=== PATIENT | female | born 1955 | race Caucasian/White ===

== ENCOUNTER → 2016-12-08 | Outpatient (CLI) | payer BC ==
[~2016-12-08] MED LIST: BACTRIM DS TAB1 EACH PO; CELEBREX 200MG200 MG PO; D3-5050000 IU PO; HCTZ 25MG25 MG PO; TRAMADOL 50 MG TAB PO; TRIAMTERENE AND1 CAP PO; ZANTAC300 MG PO
== END ==
LOC: LAB 09:29
DX: Z00.00 Encounter for general adult medical examination without abnormal findings (principal)

== ENCOUNTER → 2017-04-13 | Outpatient (CLI) | payer BC ==
[~2017-04-13] VITALS: Ht 167.6 cm; Wt 89.5 kg
[2017-04-13 17:23] VITALS: BP 138/85
== END ==
LOC: AMSURD 16:42
DX: Z01.812 Encounter for preprocedural laboratory examination (principal); M16.0 Bilateral primary osteoarthritis of hip

== ENCOUNTER → 2017-04-18 | Outpatient (CLI) | payer BC ==
[2017-04-13 17:23] VITALS: BP 138/85
== END ==
LOC: LAB 12:22
DX: Z01.818 Encounter for other preprocedural examination (principal); M16.0 Bilateral primary osteoarthritis of hip; N30.00 Acute cystitis without hematuria

== ENCOUNTER → 2017-08-17 | Outpatient (CLI) | payer BC ==
[~2017-08-17] VITALS: Ht 167.6 cm; Wt 89.5 kg
[~2017-08-17] MED LIST changes: +CLARITIN-D 10 M1 T24 PO; +GINSENG100 M2 PO; +GLUCOSAMIN-CHO1 EACH PO; +IRON90 MG PO; +MAGNESIUM CHELA27 MG PO; +NATURE'S BLE1000 MCG PO; +PHARMASSURE FO0.4 MG PO; +POTASSIUM GLUC550 M1 PO; +VITAMIN B122500 MC1 PO; +VITAMIN C500 MG PO; +VITAMIN C60 MG PO
[2017-08-17 16:23] VITALS: BP 134/87
== END ==
LOC: AMSURD 15:46
DX: Z01.818 Encounter for other preprocedural examination (principal); M16.0 Bilateral primary osteoarthritis of hip

== ENCOUNTER → 2017-08-20 | Outpatient (CLI) | payer BC ==
[2017-08-17 16:23] VITALS: BP 134/87
== END ==
LOC: LAB 09:31
DX: Z01.818 Encounter for other preprocedural examination (principal); M16.0 Bilateral primary osteoarthritis of hip

== ENCOUNTER → 2017-08-24 | Outpatient (CLI) | payer BC ==
[2017-08-17 16:23] VITALS: BP 134/87
== END ==
LOC: LAB 08:26
DX: Z01.818 Encounter for other preprocedural examination (principal); M16.0 Bilateral primary osteoarthritis of hip; N30.00 Acute cystitis without hematuria

== ENCOUNTER → 2018-02-15 | Outpatient (CLI) | payer BC ==
[2017-08-17 16:23] VITALS: BP 134/87
== END ==
LOC: RAD 13:59
DX: R05 Cough (principal)

== ENCOUNTER → 2018-10-02 | Outpatient (CLI) | payer BC ==
[2017-08-17 16:23] VITALS: BP 134/87
== END ==
LOC: MAMMO 15:15
DX: Z12.31 Encounter for screening mammogram for malignant neoplasm of breast (principal); Z12.11 Encounter for screening for malignant neoplasm of colon; Z01.419 Encounter for gynecological examination (general) (routine) without abnormal findings

== ENCOUNTER → 2018-10-14 | Day surgery (SDC) | payer BC ==
[2017-08-17 16:23] VITALS: BP 134/87
== END ==
LOC: MSO 08:35
DX: Z12.11 Encounter for screening for malignant neoplasm of colon (principal); I10 Essential (primary) hypertension; J45.909 Unspecified asthma, uncomplicated; K21.9 Gastro-esophageal reflux disease without esophagitis; Z79.899 Other long term (current) drug therapy
CPT/HCPCS: 00812; J2405; J2704; J3010; J7120

== ENCOUNTER → 2018-10-31 | Outpatient (CLI) | payer BC ==
[2017-08-17 16:23] VITALS: BP 134/87
[2018-10-31 16:11] LABS: EOS # 0.2 (0.04-0.40); EOS % 2.7 % (1.0-5.0); HEMOGLOBIN 14.6 g/dL (12.5-16.0); LYMPH# 2.5 (1.50-4.00); MEAN CELL VOLUME 86 fl (78-100); MEAN CORPUSCULAR HEMOGLOBIN 29 pg (27-31); MEAN CORPUSCULAR HGB CONC 34 g/dL (33-37); MEAN PLATELET VOLUME 9.3 fl (7.4-10.4); MONO # 0.5 (0.20-0.80); NEU # 3.1 (1.40-6.50); PLATELET COUNT 284 K/mm3 (130-400); RED BLOOD COUNT 4.98 M/mm3 (4.10-5.30); RED CELL DISTRIBUTION WIDTH 13.5 % (11.5-14.5); WHITE BLOOD COUNT 6.3 K/mm3 (4.8-10.8)
[2018-10-31 16:36] LABS: ALBUMIN 4.5 g/dL (3.5-5.0); CALCIUM 9.3 mg/dL (8.4-10.2); POTASSIUM 3.7 mmol/L (3.6-5.0); TOTAL BILIRUBIN 0.4 mg/dL (0.2-1.3); TOTAL PROTEIN 7.6 g/dL (6.3-8.2)
[2018-10-31 17:40] LABS: ERYTHROCYTE SEDIMENTATION RATE 4 mm/hr (0-30)
== END ==
LOC: LAB 15:50
PROVIDERS: Internal Medicine
DX: Z12.11 Encounter for screening for malignant neoplasm of colon (principal); Z00.00 Encounter for general adult medical examination without abnormal findings

== ENCOUNTER → 2019-10-22 | Outpatient (CLI) | payer MEDICARE, OTHER ==
[2017-08-17 16:23] VITALS: BP 134/87
== END ==
LOC: MAMMO 15:46
DX: Z12.31 Encounter for screening mammogram for malignant neoplasm of breast (principal)

== ENCOUNTER → 2019-10-31 | Outpatient (CLI) | payer MEDICARE, OTHER ==
[2017-08-17 16:23] VITALS: BP 134/87
[2019-10-31 15:54] LABS: EOS # 0.2 (0.04-0.40); EOS % 2.1 % (1.0-5.0); HEMATOCRIT 45.4 % (37.0-47.0); HEMOGLOBIN 15.3 g/dL (12.5-16.0); LYMPH# 2.6 (1.50-4.00); MEAN CELL VOLUME 86 fl (78-100); MEAN CORPUSCULAR HEMOGLOBIN 29 pg (27-31); MEAN CORPUSCULAR HGB CONC 34 g/dL (33-37); MEAN PLATELET VOLUME 9.3 fl (7.4-10.4); MONO # 0.7 (0.20-0.80); NEU # 3.8 (1.40-6.50); PLATELET COUNT 264 K/mm3 (130-400); RED BLOOD COUNT 5.26 M/mm3 (4.10-5.30); RED CELL DISTRIBUTION WIDTH 13.6 % (11.5-14.5); WHITE BLOOD COUNT 7.3 K/mm3 (4.8-10.8)
[2019-10-31 16:10] LABS: ALBUMIN 4.3 g/dL (3.4-4.8); POTASSIUM 3.6 mmol/L (3.5-5.1)
[2019-10-31 16:11] LABS: CALCIUM 10.1 mg/dL (8.3-10.5)
[2019-10-31 16:12] LABS: TOTAL PROTEIN 7.8 g/dL (6.2-8.1)
[2019-10-31 16:14] LABS: TOTAL BILIRUBIN 0.5 mg/dL (0.2-1.2)
[2019-10-31 16:59] LABS: ERYTHROCYTE SEDIMENTATION RATE 4 mm/hr (0-30)
== END ==
LOC: LAB 14:44
PROVIDERS: Internal Medicine
DX: Z12.11 Encounter for screening for malignant neoplasm of colon (principal); E78.2 Mixed hyperlipidemia; K90.9 Intestinal malabsorption, unspecified; F32.2 Major depressive disorder, single episode, severe without psychotic features

== ENCOUNTER → 2020-06-24 | Outpatient (CLI) | payer MEDICARE, OTHER ==
[2017-08-17 16:23] VITALS: BP 134/87
[2020-06-24 08:37] LABS: EOS # 0.2 (0.04-0.40); EOS % 3.4 % (1.0-5.0); HEMATOCRIT 45.5 % (37.0-47.0); HEMOGLOBIN 15.4 g/dL (12.5-16.0); LYMPH# 2.9 (1.50-4.00); MEAN CELL VOLUME 86 fl (78-100); MEAN CORPUSCULAR HEMOGLOBIN 29 pg (27-31); MEAN CORPUSCULAR HGB CONC 34 g/dL (33-37); MEAN PLATELET VOLUME 9.3 fl (7.4-10.4); MONO # 0.7 (0.20-0.80); NEU # 2.4 (1.40-6.50); PLATELET COUNT 262 K/mm3 (130-400); RED BLOOD COUNT 5.28 M/mm3 (4.10-5.30); RED CELL DISTRIBUTION WIDTH 13.1 % (11.5-14.5); WHITE BLOOD COUNT 6.2 K/mm3 (4.8-10.8)
[2020-06-24 08:47] LABS: ALBUMIN 4.3 g/dL (3.4-4.8); POTASSIUM 3.6 mmol/L (3.5-5.1)
[2020-06-24 08:48] LABS: CALCIUM 9.8 mg/dL (8.3-10.5)
[2020-06-24 08:50] LABS: TOTAL PROTEIN 7.8 g/dL (6.2-8.1)
[2020-06-24 08:51] LABS: TOTAL BILIRUBIN 0.5 mg/dL (0.2-1.2)
[2020-06-24 09:40] LABS: ERYTHROCYTE SEDIMENTATION RATE 0 mm/hr (0-30)
== END ==
LOC: LAB 08:24
PROVIDERS: Internal Medicine
DX: E78.2 Mixed hyperlipidemia (principal); F32.2 Major depressive disorder, single episode, severe without psychotic features; K90.9 Intestinal malabsorption, unspecified

== ENCOUNTER → 2020-10-22 | Outpatient (CLI) | payer MEDICARE, OTHER ==
[2017-08-17 16:23] VITALS: BP 134/87
== END ==
LOC: LAB 10:36
DX: K90.9 Intestinal malabsorption, unspecified (principal)

== ENCOUNTER → 2020-11-30 | Outpatient (CLI) | payer MEDICARE, OTHER ==
[2017-08-17 16:23] VITALS: BP 134/87
== END ==
LOC: CARDLAB 10:08 → CARDREHAB 15:24
DX: G47.19 Other hypersomnia (principal)
CPT/HCPCS: G0399

== ENCOUNTER → 2021-03-01 | Outpatient (CLI) | payer MEDICARE, OTHER ==
[2017-08-17 16:23] VITALS: BP 134/87
[2021-03-01 09:49] LABS: ALBUMIN 4.2 g/dL (3.4-4.8)
[2021-03-01 09:50] LABS: POTASSIUM 3.7 mmol/L (3.5-5.1)
[2021-03-01 09:51] LABS: CALCIUM 9.5 mg/dL (8.3-10.5); PROTHROMBIN TIME 10.1 SECONDS (9.0-12.0)
[2021-03-01 09:52] LABS: TOTAL PROTEIN 7.6 g/dL (6.2-8.1)
[2021-03-01 09:54] LABS: BASO # 0.1 (0.02-0.10); EOS # 0.3 (0.04-0.40); HEMATOCRIT 46.6 % (37.0-47.0); HEMOGLOBIN 15.5 g/dL (12.5-16.0); LYMPH# 2.9 (1.50-4.00); MEAN CELL VOLUME 87 fl (78-100); MEAN CORPUSCULAR HEMOGLOBIN 29 pg (27-31); MEAN CORPUSCULAR HGB CONC 33 g/dL (33-37); MEAN PLATELET VOLUME 9.4 fl (7.4-10.4); MONO # 0.6 (0.20-0.80); NEU # 2.7 (1.40-6.50); PLATELET COUNT 276 K/mm3 (130-400); RED BLOOD COUNT 5.37 M/mm3 (4.10-5.30); RED CELL DISTRIBUTION WIDTH 13.3 % (11.5-14.5); TOTAL BILIRUBIN 0.7 mg/dL (0.2-1.2); WHITE BLOOD COUNT 6.5 K/mm3 (4.8-10.8)
[2021-03-01 09:58] LABS: MAGNESIUM 2.07 mg/dL (1.60-2.60)
[2021-03-01 12:04] LABS: URINE APPEARANCE CLEAR; URINE BILIRUBIN NEGATIVE (NEGATIVE); URINE BLOOD NEGATIVE (NEGATIVE); URINE COLOR YELLOW; URINE GLUCOSE NEGATIVE (NEGATIVE); URINE KETONE NEGATIVE (NEGATIVE); URINE LEUKOCYTE ESTERASE NEGATIVE (NEGATIVE); URINE NITRATE NEGATIVE (NEGATIVE); URINE PROTEIN(semi-quant) NEGATIVE (NEGATIVE); URINE UROBILINOGEN NORMAL (NORMAL)
== END ==
LOC: AMSURD 09:14
PROVIDERS: Internal Medicine
DX: Z01.812 Encounter for preprocedural laboratory examination (principal)

== ENCOUNTER → 2021-03-01 | Outpatient (CLI) | payer MEDICARE, OTHER ==
[2017-08-17 16:23] VITALS: BP 134/87
== END ==
LOC: MAMMO 10:07
DX: Z12.31 Encounter for screening mammogram for malignant neoplasm of breast (principal)

== ENCOUNTER → 2021-08-12 | Outpatient (CLI) | payer MEDICARE, OTHER | LOC: RAD 10:48 | DX: M17.11 Unilateral primary osteoarthritis, right knee (principal) ==

== ENCOUNTER → 2022-02-24 | Outpatient (CLI) | payer MEDICARE, OTHER ==
[2022-02-24 10:34] LABS: ALBUMIN 4.2 g/dL (3.4-4.8); POTASSIUM 3.7 mmol/L (3.5-5.1)
[2022-02-24 10:35] LABS: CALCIUM 10.2 mg/dL (8.3-10.5)
[2022-02-24 10:37] LABS: TOTAL PROTEIN 7.5 g/dL (6.2-8.1)
[2022-02-24 10:38] LABS: TOTAL BILIRUBIN 0.8 mg/dL (0.2-1.2)
[2022-02-24 10:48] LABS: BASO # 0.03 K/mm3 (0.02-0.10); EOS # 0.19 K/mm3 (0.04-0.40); EOS % 1.8 % (1.0-5.0); HEMATOCRIT 46.5 % (37.0-47.0); HEMOGLOBIN 15.9 g/dL (12.5-16.0); LYMPH# 3.06 K/mm3 (1.50-4.00); MEAN CELL VOLUME 87 fl (78-100); MEAN CORPUSCULAR HEMOGLOBIN 30 pg (27-31); MEAN CORPUSCULAR HGB CONC 34 g/dL (33-37); MEAN PLATELET VOLUME 9.8 fl (7.4-10.4); MONO # 0.81 K/mm3 (0.20-0.80); NEU # 6.35 K/mm3 (1.40-6.50); PLATELET COUNT 250 K/mm3 (130-400); RED BLOOD COUNT 5.37 M/mm3 (4.10-5.30); RED CELL DISTRIBUTION WIDTH 12.6 % (11.5-14.5); WHITE BLOOD COUNT 10.5 K/mm3 (4.8-10.8)
[2022-02-24 11:58] LABS: ERYTHROCYTE SEDIMENTATION RATE 2 mm/hr (0-30)
== END ==
LOC: LAB 09:53
PROVIDERS: Internal Medicine
DX: G47.33 Obstructive sleep apnea (adult) (pediatric) (principal); E78.2 Mixed hyperlipidemia; K90.9 Intestinal malabsorption, unspecified; R41.3 Other amnesia; R41.89 Other symptoms and signs involving cognitive functions and awareness

== ENCOUNTER → 2022-03-13 | Outpatient (CLI) | payer MEDICARE, OTHER | LOC: RAD 08:43 | DX: G31.9 Degenerative disease of nervous system, unspecified (principal) | CPT/HCPCS: A9585 ==

== ENCOUNTER → 2023-02-20 | Outpatient (CLI) | payer MEDICARE, OTHER ==
[2023-02-20 11:22] LABS: BASO # 0.05 K/mm3 (0.02-0.10); EOS # 0.16 K/mm3 (0.04-0.40); EOS % 2.3 % (1.0-5.0); HEMATOCRIT 44.7 % (37.0-47.0); LYMPH# 2.84 K/mm3 (1.50-4.00); MEAN CELL VOLUME 88 fl (78-100); MEAN CORPUSCULAR HEMOGLOBIN 30 pg (27-31); MEAN CORPUSCULAR HGB CONC 34 g/dL (33-37); MEAN PLATELET VOLUME 9.1 fl (7.4-10.4); MONO # 0.58 K/mm3 (0.20-0.80); NEU # 3.21 K/mm3 (1.40-6.50); PLATELET COUNT 226 K/mm3 (130-400); RED BLOOD COUNT 5.08 M/mm3 (4.10-5.30); RED CELL DISTRIBUTION WIDTH 12.9 % (11.5-14.5); WHITE BLOOD COUNT 6.9 K/mm3 (4.8-10.8)
[2023-02-20 11:29] LABS: ALBUMIN 4.2 g/dL (3.4-4.8); POTASSIUM 3.9 mmol/L (3.5-5.1)
[2023-02-20 11:30] LABS: CALCIUM 9.8 mg/dL (8.3-10.5)
[2023-02-20 11:32] LABS: TOTAL PROTEIN 7.3 g/dL (6.2-8.1)
[2023-02-20 11:33] LABS: TOTAL BILIRUBIN 0.5 mg/dL (0.2-1.2)
[2023-02-20 12:28] LABS: ERYTHROCYTE SEDIMENTATION RATE 5 mm/hr (0-30)
== END ==
LOC: LAB 11:02
PROVIDERS: Internal Medicine
DX: Z12.11 Encounter for screening for malignant neoplasm of colon (principal); E78.2 Mixed hyperlipidemia; K90.9 Intestinal malabsorption, unspecified; F32.0 Major depressive disorder, single episode, mild

== ENCOUNTER → 2024-03-25 | Outpatient (CLI) | payer MEDICARE, OTHER ==
[2024-03-25 13:35] LABS: BASO # 0.04 K/mm3 (0.02-0.10); EOS # 0.14 K/mm3 (0.04-0.40); EOS % 1.9 % (1.0-5.0); HEMATOCRIT 45.8 % (37.0-47.0); HEMOGLOBIN 15.2 g/dL (12.5-16.0); LYMPH# 3.16 K/mm3 (1.50-4.00); MEAN CELL VOLUME 90 fl (78-100); MEAN CORPUSCULAR HEMOGLOBIN 30 pg (27-31); MEAN CORPUSCULAR HGB CONC 33 g/dL (33-37); MEAN PLATELET VOLUME 9.2 fl (7.4-10.4); MONO # 0.57 K/mm3 (0.20-0.80); NEU # 3.39 K/mm3 (1.40-6.50); PLATELET COUNT 232 K/mm3 (130-400); RED BLOOD COUNT 5.11 M/mm3 (4.10-5.30); WHITE BLOOD COUNT 7.3 K/mm3 (4.8-10.8)
[2024-03-25 13:40] LABS: ALBUMIN 4.4 g/dL (3.4-4.8)
[2024-03-25 13:41] LABS: CALCIUM 9.9 mg/dL (8.3-10.5)
[2024-03-25 13:42] LABS: TOTAL PROTEIN 7.7 g/dL (6.2-8.1)
[2024-03-25 13:44] LABS: TOTAL BILIRUBIN 0.7 mg/dL (0.2-1.2)
[2024-03-25 13:49] LABS: MAGNESIUM 2.03 mg/dL (1.60-2.60)
[2024-03-25 13:54] LABS: PH-URINE 5.5 (5.0 - 8.0); URINE APPEARANCE CLOUDY (CLEAR); URINE BILIRUBIN NEGATIVE (NEGATIVE); URINE BLOOD NEGATIVE (NEGATIVE); URINE COLOR YELLOW (YELLOW); URINE GLUCOSE NEGATIVE (NEGATIVE); URINE KETONE NEGATIVE (NEGATIVE); URINE LEUKOCYTE ESTERASE TRACE (NEGATIVE); URINE NITRATE POSITIVE (NEGATIVE); URINE PROTEIN(semi-quant) NEGATIVE (NEGATIVE)
[2024-03-25 13:57] LABS: URINE MUCUS PRESENT (NOT PRESENT)
[2024-03-25 22:35] LABS: HEPATITIS C VIRUS ANTIBODY Negative (Negative)
== END ==
LOC: LAB 12:25
PROVIDERS: Internal Medicine
DX: Z12.11 Encounter for screening for malignant neoplasm of colon (principal); Z11.59 Encounter for screening for other viral diseases; K90.9 Intestinal malabsorption, unspecified; E78.2 Mixed hyperlipidemia; R73.03 Prediabetes

== ENCOUNTER → 2024-04-01 | Outpatient (CLI) | payer MEDICARE, OTHER | LOC: LAB 09:35 | DX: Z12.11 Encounter for screening for malignant neoplasm of colon (principal); Z11.59 Encounter for screening for other viral diseases; K90.9 Intestinal malabsorption, unspecified; E78.2 Mixed hyperlipidemia; R73.03 Prediabetes ==

== ENCOUNTER → 2024-04-30 | Outpatient (CLI) | payer MEDICARE, OTHER | LOC: MAMMO 10:20 | DX: Z12.31 Encounter for screening mammogram for malignant neoplasm of breast (principal) ==

== ENCOUNTER → 2024-07-10 | Outpatient (CLI) | payer MEDICARE, OTHER | LOC: LAB 15:02 | DX: Z12.11 Encounter for screening for malignant neoplasm of colon (principal) ==